=== PATIENT | female | born 1950 | race Caucasian/White ===

== ENCOUNTER 2021-01-27 08:44 | Day surgery (SDC) | payer MEDICARE, OTHER ==
[~2021-01-27] VITALS: Ht 152.4 cm; Wt 58.1 kg
[2021-01-27] VITALS (12 sets, daily range): BP systolic 109–145; BP diastolic 59–78; PULSE 62–73; TEMP 98.3
[2021-01-27 09:34] LABS: HEMATOCRIT 47.3 % (37.0-47.0); HEMOGLOBIN 15.3 g/dl (12.5-16.0); MEAN CELL VOLUME 92 fl (80.0-100.0); MEAN CORPUSCULAR HEMOGLOBIN 30 pg (27.0-31.0); MEAN CORPUSCULAR HGB CONC 32 g/dl (33.0-37.0); MEAN PLATELET VOLUME 12.1 fl (7.4-10.4); PLATELET COUNT 184 K/mm3 (130-400); RED BLOOD COUNT 5.13 M/mm3 (4.10-5.30); REDCELL DISTRIBUTION WIDTH-CV 13.1 % (11.5-14.5)
[2021-01-27] MEDS ORDERED: NORVASC2.5 MG PO (09:38)
[2021-01-27] MEDS ORDERED: ASPIRIN E.C. 8181 MG PO (09:38)
[2021-01-27] MEDS ORDERED: NAPROXEN 3375 MG/TAB PO (09:39)
[2021-01-27] MEDS ORDERED: LOTEMAX 5 ML 5 M5 ML OU (09:40)
[2021-01-27] MEDS ORDERED: BEELITH PO (09:40)
[2021-01-27] MEDS ORDERED: OCUVITE1 TA1 PO (09:40)
[2021-01-27 09:41] LABS: PROTHROMBIN TIME 10.6 SECONDS (9.7-12.8)
[2021-01-27] MEDS ORDERED: ALFALFA250 MG PO (09:41)
[2021-01-27] MEDS ORDERED: [UNRECOGNIZED DRUG - OTHER] PO (09:42)
[2021-01-27] MEDS ORDERED: HERBLAX PO (09:43)
[2021-01-27 09:44] LABS: PARTIAL THROMBOPLASTIN TIME 34.3 SECONDS (26.0-37.0)
[2021-01-27] MEDS ORDERED: VITAMINE200 PO (09:44)
[2021-01-27] MEDS ORDERED: MULTI-VITAMIN W1 TA2 PO (09:45)
[2021-01-27] MEDS ORDERED: OSTEO-BI-FLEX 21 TAB PO (09:46)
[2021-01-27] MEDS ORDERED: NATURAL COD LIV1 SGL PO (09:46)
[2021-01-27] MEDS ORDERED: MASON NATURAL2000 IU PO (09:47)
[2021-01-27 09:49] LABS: CALCIUM 10.2 mg/dL (8.4-10.2); CREATININE, serum 0.55 (0.52-1.25); POTASSIUM 3.7 mmol/L (3.4-5.0)
[2021-01-27] MEDS ORDERED: CALCIUM 600600 MG PO (09:50)
--- NOTE | 2021-01-27 11:15 | NUR ---
PT BACK FROM [facility], SHE IS DROWSY, AROUSABLE TO VOICE. AT BS. NSR RATE 60'S ON MONITOR, TR BAND TO RT WRIST, 10 CC AIR IN BAND. CMS INTACT DISTAL. PT AND UPDATED ON POC. LUNCH ORDERED. CALL LIGHT IN REACH. WCTM
--- NOTE | 2021-01-27 11:51 | NUR ---
PT EATING LUNCH AT THIS TIME. PT REPORTS FEELS GOOD EXCEPT STILL EXPERIENCING SOME NAUSEA. I PAGED DR. SHEIKH'S NURSE TO REQUEST NAUSEA MEDICINE.
--- NOTE | 2021-01-27 13:25 | NUR ---
PT has been up ambulatory with steady gait to bathroom. Pt is resting comfortably as we deflate TR band. We have reviewed dc/fu instructions and pt and deny any questions.
--- NOTE | 2021-01-27 14:18 | NUR ---
10 cc air released from right Tband and dressing applied. INT discontinued intact.
--- NOTE | 2021-01-27 14:31 | NUR ---
Discharge instructions given by Leigh MEJIA. PT/ have no other questions. Transferred to private car by ajit
== END 2021-01-27 14:40 | disposition home or self-care (01) ==
LOC: COL.CAR 08:44
PROVIDERS: Internal Medicine Cardiovascular Disease
DX: I48.0 Paroxysmal atrial fibrillation (principal); I25.10 Atherosclerotic heart disease of native coronary artery without angina pectoris; I10 Essential (primary) hypertension; E78.5 Hyperlipidemia, unspecified; Z20.822 Contact with and (suspected) exposure to COVID-19; Z79.899 Other long term (current) drug therapy; Z85.820 Personal history of malignant melanoma of skin
CPT/HCPCS: J1644; J2250; J2405; J3010